=== PATIENT | male | born 1970 ===

== ENCOUNTER 2017-04-25 15:28 | Day surgery (SDC) | payer OTHER, BC ==
[2017-04-25 11:33] VITALS: BMI 29.0
[2017-04-25] MEDS ORDERED: Phenylephrine 10 mg/ml Inj ONE (15:52)
[2017-04-25] MEDS ORDERED: Nitroglycerin 50mg in D5W 50 MG/250 ML BOTTLE IV ONE (15:53)
[2017-04-25] MEDS ORDERED: Iohexol 350mgl/ml 50 ML ONE (15:53)
[2017-04-25] MEDS ORDERED: Iohexol 350 MG/100 ML VIAL ONE (15:53)
[2017-04-25] MEDS ORDERED: Lidocaine 2% Inj (20ml) ONE ×2 (15:55→18:15)
[2017-04-25] MEDS ORDERED: Morphine 2 mg/ml ISec ONE (16:10)
[2017-04-25] MEDS ORDERED: Midazolam 2 MG/2 ML VIAL ONE ×3 (16:17→17:53)
[2017-04-25] MEDS ORDERED: Adenosine 90 mg/30mL IV ONE (16:17)
[2017-04-25] MEDS ORDERED: Sodium Chloride 0.9% 1,000 ML IV SCH (18:30)
[2017-04-25] MEDS ORDERED: Naproxen 550 mg Tab PO STA (20:02)
[2017-04-25] MEDS ORDERED: Alum-Mag Hydrox-Simethicone Susp (30 mL) PO STA (20:03)
--- NOTE | 2017-04-25 20:04 | CP.PCM.PN ---
Subjective - Date & Time of Evaluation Date of Evaluation: 04/25/17 Time of Evaluation: 20:03 - Subjective Subjective: Patient was seen at bedside. He had cardiac catheter done today which was negative. Chest pain in sternal area, no radiation, no association with breathing, 4/10 when it began, now 2/10. No other complaints. Medical record was reviewed. This 46 year old white male was admitted after he had chest pain with tightness , had cardiac cath done today. Has PMH of back surgery, overweight, anxiety, HLD, migraine. Objective - Medications Medications: Current Medications Sodium Chloride (Sodium Chloride 0.9%) 1,000 mls @ 100 mls/hr IV .Q10H LINO Naproxen (Anaprox Ds) 550 mg PO STAT STA Stop: 04/25/17 20:03 - Constitutional Appears: Well, No Acute Distress - Head Exam Head Exam: ATRAUMATIC, NORMAL INSPECTION, NORMOCEPHALIC - Eye Exam Eye Exam: Normal appearance - ENT Exam ENT Exam: Normal External Ear Exam - Neck Exam Neck Exam: Normal Inspection - Respiratory Exam Respiratory Exam: NORMAL BREATHING PATTERN - Cardiovascular Exam Cardiovascular Exam: REGULAR RHYTHM, +S1 (Normal.), +S2 (Normal.). absent: JVD - GI/Abdominal Exam GI & Abdominal Exam: absent: Distended - Rectal Exam Rectal Exam: Deferred - Exam Additional comments: Deferred. - Extremities Exam Extremities Exam: Normal Inspection - Back Exam Back Exam: NORMAL INSPECTION - Neurological Exam Neurological Exam: Alert, Oriented x3 - Psychiatric Exam Psychiatric exam: Normal Affect, Normal Mood - Skin Skin Exam: Normal Color Assessment and Plan - Assessment and Plan (Free Text) Assessment: Chest pain-musculoskeletal Overweight. Anxiety. HLD. Plan: Naprosyn 550 mg PO x 1. Maalox 30 CC PO x 1. If he feels ok, will be discharged home.
[2017-04-25 20:19] VITALS: RESP 20; O2SAT 99
[2017-04-25 21:20] VITALS: BP 98/58; PULSE 60; TEMP 98.2
--- NOTE | 2017-04-26 10:21 | PROCN ---
DATE: 04/25/2017 INDICATIONS: Mr. Ameya Gómez is a 46-year-old male with past medical history significant for dyslipidemia, chronic lower back pain, who was having intermittent episodes of chest pain for which he underwent Lexiscan nuclear stress test at [facility] this morning. Post Lexiscan incision, he started to have 5/10 chest pain accompanied with new left bundle branch block. The patient continued to have episodes of chest pain for which he was on sublingual nitroglycerin, made him hypertensive. He was subsequently transferred to [facility] for further evaluation of presentation and normal EKG findings. PROCEDURE PERFORMED: Left heart catheterization with selective left and right coronary angiogram via right femoral approach, 6-Indonesian right femoral artery access, Mynx closure device for hemostasis. TECHNIQUES OF PROCEDURE: After obtaining informed consent, the patient was brought to the cardiac cath suite in post-absorptive non-sedated state. The patient was prepped and draped in the usual sterile fashion. A 2% lidocaine was used for infiltration of anesthesia, using modified Seldinger technique, a 6-Indonesian sheath was introduced into right femoral artery. Subsequently, over a J-wire, JL4, and JR4 diagnostic catheter was used to engage the left and right coronary systems and angiograms were obtained in different orthogonal views. Subsequently, over a J-wire, JL4 catheter was used to cross the aortic valve and LV gram was obtained in the SOLANO view. HEMODYNAMIC FINDINGS: Left ventricular end-diastolic pressure was 15 mmHg. There was no gradient noted upon the aortic valve pullback. There was no AI, no MR. Left ventricular ejection fraction estimated to be 50 to 55%. CORONARY ANATOMY: Left main large size vessel bifurcates into left anterior descending, ramus intermedius, and left circumflex coronary artery. Left circumflex is a large sized vessel, left dominant system gives off two small obtuse marginal branch and ramus intermedius large sized vessel with mild luminal irregularities. LAD large sized vessel, mid segment has mild degree of myocardial bridge, gives off two small diagonal branches. RCA is small non-dominant with spasm noted on engagement, relieved after sublingual nitroglycerin. IMPRESSION: Nonobstructive coronary disease, mid left anterior descending myocardial bridge. Spasm of the right coronary artery . RECOMMENDATIONS: Continue aggressive medical management and risk factor modification. Thank you Dr. Aviles for letting me to participate in the care of your patient. Ambrosio Vogel MD cc: Sohan Aviles MD
== END 2017-04-25 21:55 | disposition home or self-care (01) ==
LOC: CATH 15:28 → 2RSO 18:33 → CATH 21:55
PROVIDERS: ATTEND Internal Medicine Interventional Cardiology
DX: I25.10 Atherosclerotic heart disease of native coronary artery without angina pectoris (principal); E78.5 Hyperlipidemia, unspecified; I10 Essential (primary) hypertension; I44.7 Left bundle-branch block, unspecified; Q24.5 Malformation of coronary vessels; G89.29 Other chronic pain; F41.9 Anxiety disorder, unspecified; G43.909 Migraine, unspecified, not intractable, without status migrainosus
CPT/HCPCS: 93458; 99152; 99153; C1760; C1769; C1887; C1894; C2629; J0153; J1644 ×2; J2250; J2270; J2405; J3010; J7040 ×2; Q9967